=== PATIENT | male | born 1935 | race Caucasian/White ===

== ENCOUNTER 2017-03-27 13:11 | Emergency (ER) | payer OTHER ==
[~2017-03-27] VITALS: Ht 170.2 cm; Wt 64.0 kg
[2017-03-27 13:42] VITALS: BP 120/73
== END 2017-03-27 14:30 | disposition home or self-care (01) ==
LOC: ED 14:24
DX: G30.8 Other Alzheimer's disease (principal); F02.81 Dementia in other diseases classified elsewhere, unspecified severity, with behavioral disturbance
CPT/HCPCS: 93005; 99283